=== PATIENT | female | born 1935 | race Caucasian/White ===

== ENCOUNTER → 2017-12-09 | Outpatient (CLI) | payer MEDICARE, BC ==
[~2017-12-09] MED LIST: APIX5TAB PO; BENA20TA2 PO; CEPH-375 PO; CHOL200074 PO; CLON-365 PO; CLON1TAB23 PO; COLE1TAB5 PO; FLUO20TA25 PO; GABA600T2 PO; METO50TA82 PO; MINE3.5O29 EACHEYE; ONDA4TAB12 PO; PANT40TA5 PO; PRAV20TA2 PO; ROPI0.5T2 PO; TRAV5DRO EACHEYE; TROS20TA2 PO
[2017-12-09 11:48] LABS: BASOPHILS # (AUTO) 0.03 x10^3/uL (0-0.1); BASOPHILS % (AUTO) 1 % (0-1); EOSINOPHILS % (AUTO) 4 % (1-7); LYMPHOCYTES # (AUTO) 1.43 x10^3/uL (1-3.4); LYMPHOCYTES % (AUTO) 25 % (22-44); MD NO; MEAN CORPUSCULAR HEMOGLOBIN 30.5 pg (27.0-34.8); MEAN CORPUSCULAR HGB CONC 32.8 g/dL (32.4-35.8); MEAN CORPUSCULAR VOLUME 92.9 fL (80-100); MONOCYTES % (AUTO) 7 % (2-9); NEUTROPHILS # (AUTO) 3.67 x10^3/uL (1.8-6.8); NEUTROPHILS % (AUTO) 64 % (42-75); PLATELET COUNT 284 x10^3/uL (130-400); RED BLOOD COUNT 4.53 x10^6/uL (3.82-5.3)
[2017-12-09 11:59] LABS: INTERNATIONAL NORMALIZED RATIO 1.02 (0.93-1.1); PROTHROMBIN TIME 10.5 Seconds (9.6-11.5)
[2017-12-09 12:00] LABS: ANION GAP 6 mmol/L (5-15); CALCIUM 9.2 mg/dL (8.5-10.1); CHLORIDE 105 mmol/L (98-107)
[2017-12-09 12:01] LABS: CREATININE 1.62 mg/dL (0.55-1.02)
[2017-12-09 12:24] LABS: MICROSCOPIC AUTO
[2017-12-09 12:43] LABS: CULTURE INDICATED? YES
[2017-12-09 20:24] LABS: HEMOGLOBIN A1C 5.8 % (4.2-6.3)
== END | disposition home or self-care (01) ==
LOC: STAR 10:15
PROVIDERS: ATTEND Orthopaedic Surgery
DX: Z01.818 Encounter for other preprocedural examination (principal); M17.11 Unilateral primary osteoarthritis, right knee
CPT/HCPCS: 36415; 80048; 81001; 83036; 85025; 85610; 85730; 87081; 87086; 93005